=== PATIENT | female | born 2005 | race Caucasian/White ===

== ENCOUNTER 2024-03-24 07:57 | Emergency (ER) | payer BC, SELFPAY ==
[2024-03-24 08:00] VITALS: BP 100/83
--- NOTE | 2024-03-24 08:39 | ED.GENMED ---
Addendum entered and electronically signed by Jennifer Murphy PA-C 03/27/24 07:36:
urine culture e coli
sarmiento sensitivie
pt feeling better, less nausea/diarrhea but yesterday had dysuria
will treat with keflex.
Original Note:
History of Present Illness
General
Chief Complaint: Abdominal Symptoms
Source: patient
Exam Limitations: none
Time Seen by Provider: 03/24/24 08:21
Nursing documentation reviewed up to this point in time: agreed with
History of Present Illness
History of Present Illness:
18 yr old female brought to the ER by mom for evaluation of nausea vomiting diarrhea started around 4 AM.FAther also has similar sympomts. No fevers. Pt does c/o of abdominal pain. Denies urinary symptoms. Patient's last menstrual period was 2
weeks ago.
Review of Systems
Review of Systems
Allergies reviewed?: Yes
All Other Systems: ROS reviewed and negative except as documented in HPI and ROS
Constitutional: Reports no symptoms
Respiratory: Reports no symptoms
Cardiac: Reports no symptoms
ABD/GI: Reports abdominal pain, nausea, vomiting and diarrhea
: Reports no symptoms
Musculoskeletal: Reports no symptoms
Skin: Reports no symptoms
Neurological: Reports no symptoms
Psychiatric: Reports no symptoms
Phy Exam
General Physical Exam
General Presentation: no apparent distress
General age: appears stated age
General Skin: warm and dry
General Habitus: normal
General Mental: alert
Course
Orders/Labs/Results
Orders:
Orders
03/24/24 08:30
IV Insert/Care/Rem.- Treatment PRN
0.9% Sodium Chloride 1000 ml [Nss] 1,000 ml IV BOLUS
Dicyclomine HCl [Bentyl] 20 mg IM NOW STA
Ondansetron Injectable [Zofran] 4 mg IV NOW STA
Test Result ONCE
03/24/24 08:40
Complete Blood Count/With Diff Urgent
Comprehensive Metabolic Panel Urgent
HCG, Serum Qualitative Screen Urgent
03/24/24 09:14
Urinalysis Reflex To Culture Urgent
Date Specimen was Collected: 03/24/24
Time Specimen was Collected: 08:57
Urine Microscopic Reflex Cult Urgent
Urine Culture Urgent
CATARINO Source: U
Specimen Description:
Date Specimen was Collected: 03/24/24
Time Specimen was Collected: 08:57
Abnormal Lab Results
03/24/24 03/24/24
08:40 09:14
MCV 80.5 L fL
(81.0-99.0)
Absolute Neuts (auto) 8.0 H 10^3/uL
(1.4-6.5)
Absolute Lymphs (auto) 0.7 L 10^3/uL
(1.2-3.4)
Neutrophils % 86.9 H %
(42.2-75.2)
Lymphocytes % 7.8 L %
(20.5-51.1)
Glucose 106 H mg/dl
(70-99)
Leukocyte Esterase Rfl Trace A
(Negative)
Urine WBC (Reflex) 30-40 A /HPF
(0-5)
Urine Bacteria (Reflex) Many A
(Negative)
03/24/24 08:40
03/24/24 08:40
Vital Signs
Initial and Last Documented VS:
Initial Vital Signs
Temp Pulse Resp BP Pulse Ox
98.0 F 118 16 100/83 100
03/24/24 08:00 03/24/24 08:00 03/24/24 08:00 03/24/24 08:00 03/24/24 08:00
Last Documented Vital Signs
Temp Pulse Resp BP Pulse Ox
98.0 F 94 16 101/65 98
03/24/24 08:00 03/24/24 10:00 03/24/24 08:00 03/24/24 10:00 03/24/24 10:00
MDM/Problems Addressed
Differential Diagnosis Includes:
Not limited to viral syndrome, likely norovirus, dehydration
MDM/Problems Addressed:
Symptoms are consistent with viral syndrome. Father and friends of the family who they were around also here with similar symptoms. Patient received fluids and Zofran here tolerated water. No abdominal tenderness on exam no UTI symptoms. I did
review urine which shows white blood cells as well as squamous cells we will send off for culture however hold off on treating as patient does not have any symptoms and likely contamination. She is in no acute distress and nontoxic will DC with
Zofran and clear fluids . WILL
*Critical Care Note
Total Time (30-74mins, 75-104mins- exclusive of procedures): Not Applicable
ED Attending Note
-
Portions of this chart may have been created with voice recognition software.� Occasional wrong word or��sound alike� substitutions may have occurred due to the inherent limitations of voice recognition software.
Discharge Plan
Departure
Patient Disposition: Home (Routine Discharge)
Date of Disposition: 03/24/24
Time of Disposition: 11:17
Patient with high blood pressure during this ER visit?: No
Condition: Fair
Covid-19: Not Applicable
Discharge Problem:
Nausea & vomiting, Diarrhea
Instructions: Diarrhea in teens and adults, Clear Liquid Diet, Nausea and Vomiting, Adult (DC)
Prescriptions:
New
ondansetron 4 mg tablet,disintegrating
4 mg PO Q8H PRN (Reason: nausea and vomiting) Qty: 10 0RF
Referrals:
UNKNOWN - PT DOES,NOT KNOW [Family Provider] -
Activity Restrictions/Additional Instructions:
As discussed symptoms are consistent with viral syndrome. Clear liquids for the next 24 hours followed by bland solid foods as tolerated. A prescription for Zofran, nausea medicine was sent to pharmacy take as directed. Follow-up with your family
doctor in the next of days return if any worsening of symptoms.
Interventions
Interventions:
*Risk Screen - Suicide Last Done: 03/24/24 08:00
*General Assessment Last Done: 03/24/24 08:00
*Neglect/Abuse Screening Last Done: 03/24/24 09:30
*ED COVID-19 Vaccine History Last Done: 03/24/24 08:00
ST-Dkmjzs-Fibbgugram Assessment Last Done: 03/24/24 09:30
Discharge Date and Time
Print Language: MICRONESIAN
[2024-03-24] MEDS: BENTYL 20 MG IM (08:45)
[2024-03-24] MEDS: NSS 1000 IV (08:45)
[2024-03-24] MEDS: ZOFRAN 4 MG IV (08:45)
[2024-03-24 08:51] VITALS: BP 107/72
[2024-03-24 09:00] VITALS: BP 108/68
[2024-03-24 09:05] LABS: % Basophils 0.1 % (0-2); % Eosinophils 0.9 % (0-6); % Immature Granulocytes 0.3 % (0-0.5); % Lymphocytes 7.8 % (20.5-51.1); % Neutrophils 86.9 % (42.2-75.2); Absolute Eosinophils 0.1 10^3/uL (0-0.7); Absolute Lymphocytes 0.7 10^3/uL (1.2-3.4); Absolute Monocytes 0.4 10^3/uL (0.1-0.6); Hematocrit 40.4 % (37.0-47.0); Hemoglobin 13.6 g/dL (12.0-16.0); Mean Corp Hgb Conc. 33.7 g/dL (33.0-37.0); Mean Corpuscular Hgb 27.1 pg (27.0-31.0); Mean Corpuscular Volume 80.5 fL (81.0-99.0); Nucleated Red Blood Cells % 0 %; Platelet Count 183 10^3/uL (130-400); Red Blood Cell Count 5.02 10^6/uL (4.20-5.40); Red Cell Dist. Width 13.2 % (11.5-14.5); White Blood Cell Count 9.2 10^3/uL (4.8-10.8)
[2024-03-24 09:11] LABS: HCG, Serum Qualitative Screen Negative
[2024-03-24 09:14] LABS: ALT (SGPT) 19 U/L (0-35); AST (SGOT) 21 U/L (14-36); Albumin 4.2 g/dl (3.5-5.0); Alkaline Phosphatase 51 U/L (38-126); Blood Urea Nitrogen 16 mg/dl (7-17); Calcium 9.2 mg/dl (8.4-10.2); Carbon Dioxide 24 mmol/L (22-30); Chloride 103 mmol/L (98-107); Glucose 106 mg/dl (70-99); Potassium 3.9 mmol/L (3.5-5.1); Sodium 135 mmol/L (135-145); Total Bilirubin 0.9 mg/dl (0.2-1.3); Total Protein 7.1 g/dl (6.3-8.2); eGFR > 60.00
[2024-03-24 09:51] LABS: Urine Albumin Negative (Neg - Trace); Urine Bilirubin Negative (Negative); Urine Character Slightly Cloudy (Clear); Urine Color Yellow; Urine Glucose Negative (Negative); Urine Ketone Negative (Negative); Urine Leukocyte Trace (Negative); Urine Nitrite Negative (Negative); Urine Occult Blood Negative (Negative); Urine Urobilinogen Negative (Neg - 1+)
[2024-03-24 10:00] VITALS: BP 101/65
[2024-03-24 10:43] LABS: Urine Mucus Many; Urine Squamous Cell >30 /LPF (Few)
[2024-03-24 10:45] LABS: Urine Bacteria Many (Negative); Urine Red Blood Cell 0-2 /HPF (0-2); Urine White Cell 30-40 /HPF (0-5)
[2024-03-24 11:00] VITALS: BP 90/61
== END 2024-03-24 12:05 | disposition home or self-care (01) ==
LOC: EMR 07:57
PROVIDERS: Nurse Practitioner; EMERGENCY PHYSICIAN Emergency Medicine
DX: R11.2 Nausea with vomiting, unspecified (principal); R19.7 Diarrhea, unspecified; R10.9 Unspecified abdominal pain
CPT/HCPCS: 99283; 96374; 96372; 96361; 80053; 81003; 81015; 84703; 85025; 87077; 87086; 87186